=== PATIENT | female | born 1965 | race Caucasian/White ===

== ENCOUNTER → 2024-10-20 18:36 | Outpatient (REF) | payer OTHER, SELFPAY | LOC: WDC 18:36 | PROVIDERS: ATTENDING PHYSICIAN Hospitalist | DX: Z12.31 Encounter for screening mammogram for malignant neoplasm of breast (principal) | CPT/HCPCS: 77063; 77067 ==

== ENCOUNTER 2025-06-20 07:18 | Day surgery (SDC) | payer OTHER, SELFPAY | END 2025-06-20 10:20 | disposition home or self-care (01) | LOC: GI 07:18 | PROVIDERS: ATTENDING PHYSICIAN Internal Medicine; FAMILY PHYSICIAN Internal Medicine | DX: Z12.11 Encounter for screening for malignant neoplasm of colon (principal); R19.5 Other fecal abnormalities; K64.8 Other hemorrhoids; D12.0 Benign neoplasm of cecum; D12.2 Benign neoplasm of ascending colon; D12.3 Benign neoplasm of transverse colon; K63.5 Polyp of colon | CPT/HCPCS: 45385; 45380; 88305 ==